=== PATIENT | male | born 1945 | race Caucasian/White ===

== ENCOUNTER 2017-06-17 00:32 | Observation (INO) | payer OTHER, MEDICARE ==
[~2017-06-17] VITALS: Ht 189.2 cm; Wt 112.9 kg
--- NOTE | ~2017-06-17 | HP ---
PATIENT'S NAME: RACHELL BROOKE [facility] AGE: 71 Y [address] ROOM: [place] [address] LOCATION: GPCU ADMIT DATE: 06/17/2017 History & Physical DISCHARGE DATE: FAMILY PHYSICIAN: HECTOR MCKAY MD ATTENDING PHYSICIAN: Horacio CHOUDHARY DATE OF SERVICE: CHIEF COMPLAINT: Chest pain. HISTORY OF PRESENT ILLNESS: The patient is a 71-year-old gentleman with past medical history of diabetes mellitus type 2, hypertension, and CAD status post PCI, who presents here with chest discomfort. The patient reports that for the past 3-4 days, he has been experiencing substernal chest discomfort, which he reports that it is pressure like. He reports that his chest pressure is constant and has been progressively getting worse. He reports that before he came to the emergency department was 5/10, now currently is 3/10 after nitro drip. He also reports of dyspnea on exertion and wheezing. He denies any radiation, exacerbating, and alleviating factors. The patient reports that this chest pain is different from his prior W[place] chest pain. He reports that his initial chest pain for his [place] was burning-like sensation. The patient thinks that this symptom is secondary to his tobacco use and he came to the emergency department if that can be ruled out. The patient denies any fever, chills, productive cough, abdominal pain, dizziness, nausea, vomiting, change in vision, and diarrhea. MEDICAL HISTORY: 1. Paroxysmal AFib. 2. Diabetes mellitus type 2. 3. Hypertension. 4. CAD. 5. Tobacco use. PAST SURGICAL HISTORY: 1. Hernia repair. 2. Broken jaw repair. 3. Tonsillectomy. FAMILY HISTORY: Father has a history of CAD, and mother had a history of GI cancer. SOCIAL HISTORY: PATIENT'S NAME: [facility] AGE: 71 Y [address] ROOM: [place] [address] LOCATION: GPCU ADMIT DATE: 06/17/2017 History & Physical DISCHARGE DATE: FAMILY PHYSICIAN: HECTOR MCKAY MD ATTENDING PHYSICIAN: Horacio CHOUDHARY He has 57 years of gyra-vum-fkgf tobacco use and he is disabled . MEDICATIONS: Currently being reconciled. REVIEW OF SYSTEMS: All systems have been reviewed and are negative except for what is mentioned in HPI. PHYSICAL EXAMINATION: VITAL SIGNS: Afebrile, blood pressure 152/84, heart rate of 49, saturating 96% on 1 L, and respiratory rate of 14. GENERAL APPEARANCE: The patient is alert and awake, in no acute distress. HEAD: Normocephalic, atraumatic. EYES: Extraocular movements are intact. ORAL CAVITY: Moist oral cavity. NOSE: No nasal discharge. EARS: No ear discharge. CHEST: Clear to auscultation bilaterally. HEART: Bradycardic. No murmurs, rubs, or gallops. ABDOMEN: Soft, nontender, and nondistended. Bowel sounds are present. SKIN: Warm to touch. MUSCULOSKELETAL: Range of motion intact. No obvious joint effusion noted. 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 Motor and sensory grossly intact. LABORATORY DATA: Troponin x1 negative. White blood cells 8, hemoglobin of 14.5, platelets of 189. BUN of 11, creatinine of 1. Sodium of 133, potassium of 4.1, CO2 of 27. INR of 2.91. Chest x-ray shows no acute cardiopulmonary changes. EKG shows sinus bradycardia with first-degree AV block with ME of 225, heart rate of 53, some nonspecific T-wave change on V1 and V2. Incomplete right- bundle branch block with a left axis deviation. ASSESSMENT AND PLAN: 1. Chest pain. The patient is presenting with atypical chest pain. However, the patient has a history of coronary artery disease. Initial cardiac enzymes are negative. EKG unremarkable. Chest x-ray unremarkable. We will admit the patient and continue with the nitroglycerin drip as it has some improvement on chest pain. We will trend troponin. We will hold heparin drip as the patient is on Coumadin. We will trend the cardiac enzyme. To continue aspirin and Plavix. We will hold beta-lesly as the patient has bradycardia. Cardiology PATIENT'S NAME: RACHELL BROOKE [facility] AGE: 71 Y [address] ROOM: [address] [place], [place] [address] LOCATION: [facility] ADMIT DATE: 06/17/2017 History & Physical DISCHARGE DATE: FAMILY PHYSICIAN: HECTOR MCKAY MD ATTENDING PHYSICIAN: FUNMI,Dagmawe consult in the morning. 2. Possible chronic obstructive pulmonary disease. The patient has expiratory wheezing on examination. He reports that he has been wheezing for the past 3-4 days. I suspect the patient might have underlying chronic obstructive pulmonary disease. We will start DuoNeb as needed. 3. Hypertension, currently on nitroglycerin drip. To continue home medication. 4. Paroxysmal atrial fibrillation. INR of 2.91. We will hold Coumadin for now, as the patient might need coronary angiogram during his stay. We will acquire daily INR. 5. Diabetes mellitus type 2. The patient is currently on metformin. We will hold metformin. We will start the patient on SSI. 6. Tobacco use. Discussed about cessation. The patient is ready to quit and offered nicotine. The patient reports that he does not want to use nicotine. Greater than 50 minutes was spent on patient care. Greater than 50% was spent on direct patient care. Assessment and plan was discussed with the patient. The patient understands the plan. The patient's question was answered with satisfaction. Code status discussed on admission, code status full code. We will keep the patient n.p.o. for now for possible ischemic evaluation per Cardiology. MD ISREAL NEWMAN/elmira /[id number] D: [id number] T: [id number] HISTORY & PHYSICAL
--- NOTE | ~2017-06-17 | ECHO ---
Transthoracic Echocardiography Report (TTE) Demographics Patient Name RACHELL BROOKE Date of Study 06/17/2017 Patient Number [id number] Visit Number [id number] Date of 1945 Room Number G6302 Gender Male Number Age 71 year(s) Referring Wing Jauregui Studio Technician Ruth Peter [facility], Physician Matias HINTON RVT Carlene Leonard Physician Interpreting Efstratiou Sql Report Analyst Physician Juventino Salcedo MD Supervising Ordering Efstratiou MD/MLP Physician Juventino Salcedo MD Nurse Stress Manager Of Purchasing Conclusions Contractility Score Summary Normal Left Ventricular contractility was noted. Summary The estimated left ventricular ejection fraction is 60-65%. Diastolic assessment reveals Grade I diastolic dysfunction. Left mild concentric ventricular hypertrophy. Mildly dilated right ventricle. The left atrium is mildly to moderately dilated by LA volume index measurement. There is mild pulmonary hypertension. The pulmonary pressure (RVSP) is 41 mmHg. Mild tricuspid regurgitation by color Doppler. Mild pulmonic valve regurgitation by color Doppler. Procedure Type of Study TTE procedure:2D Echocardiogram, M-Mode, Doppler , Color Doppler. BRIDGETT procedure Procedure Date Date: 06/17/2017 Start: 03:07 PM Study Location: [employer] Technical Quality: Adequate visualization Indications:Chest pain. Appropriate Use Criteria: 9 Patient Status: Routine Rhythm: Within normal limits HR: 55 bpm BP: 162/78 mmHg M-Mode/2D Measurements LV Diastolic Dimension: 5.56 cm LV Systolic Dimension: 3.35 cm LV Septum Diastolic: 1.18 cm LV PW Diastolic: 1.39 cm AO Root Dimension: 2.3 cm Cardiac Output: 4.3 l/min LA Dimension: 4.1 cm LVOT: 2.2 cm LVOT VTI: 20.6 cm RV Base: 4.19 cm LV Stroke volume: 78.27 ml RV Length: 6.46 cm TAPSE: 2.97 cm TDI-S': 14 cm/s Doppler Measurements AV Peak Velocity: 1.51 m/s MV Peak E-Wave: 0.75 m/s AV Peak Gradient: 9.12 mmHg MV Peak A-Wave: 0.89 m/s AV Mean Gradient: 4 mmHg MV E/A Ratio: 0.84 LVOT Peak Velocity: 0.82 m/s MV P1/2t: 74 msec TR Gradient:38.94 mmHg PV Peak Velocity: 1.07 m/s Estimated RAP:3 mmHg PV Peak Gradient: 4.58 mmHg Estimated RVSP: 42 mmHg Estimated PASP: 41.94 mmHg E' Septal Velocity: 0.07 m/s A' Septal Velocity: 0.12 m/s E' Lateral Velocity: 0.12 m/s A' Lateral Velocity: 0.08 m/s MV E/E' Ratio: 6 Findings Left Ventricle The estimated left ventricular ejection fraction is 60-65%. Diastolic assessment reveals Grade I diastolic dysfunction. Left mild concentric ventricular hypertrophy. Right Ventricle Mildly dilated right ventricle. Normal right ventricular function. Left Atrium The left atrium is mildly to moderately dilated by LA volume index measurement. Right Atrium Normal right atrial size. Mitral Valve Mild mitral regurgitation by color Doppler. Aortic Valve The aortic valve is mildly sclerotic. Tricuspid Valve There is mild pulmonary hypertension. The pulmonary pressure (RVSP) is 41 mmHg. Mild tricuspid regurgitation by color Doppler. Pulmonic Valve Mild pulmonic valve regurgitation by color Doppler. Pericardial Effusion No evidence of pericardial effusion. Miscellaneous Poor acoustical window to visualise the IVC. Pleural Effusion No evidence of pleural effusion. Signature dtt: Farhat Dimas dtd: 06/17/17 1507 Physician Self Edit
--- NOTE | ~2017-06-17 | ER ---
PATIENT'S NAME: RACHELL BROOKE [facility] AGE: 71 Y [address] ROOM: [place] [address] LOCATION: ED ADMIT DATE: 06/17/2017 ER/Outpatient Report DISCHARGE DATE: FAMILY PHYSICIAN: Paula Hernandez MD ATTENDING PHYSICIAN: Weston Avilez Admission date and time documented on the medical record. I saw the patient at 0040 hours. CHIEF COMPLAINT: Anterior chest pressure pain accompanied with shortness of breath, lightheadedness, and dizziness. HISTORY OF PRESENT ILLNESS: The patient is a 71-year-old male, who has had a three/four-day history of chest tightness, chest discomfort pain anteriorly without radiation but accompanied with shortness of breath, lightheadedness, and dizziness. No nausea, vomiting, diarrhea, or diaphoresis. The patient has a history of heart problems including coronary artery disease, status post myocardial infarction, hypertension, and paroxysmal atrial fibrillation. He does have hypothyroidism and oiu-qswrefx-ftbhzgium diabetes mellitus. Still smokes about 3/4 of pack of cigarettes a day. Generalized headache. No eyes, ears, nose, throat, neck, or spine pain. No recent coughs, colds, flus, fever, chills, or sweats. No abdominal pain. No diarrhea. No urinary frequency, urgency, or dysuria. No joint or muscle swelling, redness, or pain. No skin eruptions or rash. Does have a history of diabetes and hypothyroidism. No other endocrine problems. No seizure history, CVA, or TIA. No psych issues. HOME MEDICATIONS: See attached medication list. ALLERGIES: PENICILLIN AND CODEINE. SOCIAL HISTORY: Smokes 3/4 of pack of cigarettes per day. Nondrinker. SIGNIFICANT PAST MEDICAL HISTORY: Atherosclerotic ischemic heart disease; coronary artery disease, status post myocardial infarction; hypertension; paroxysmal atrial fibrillation, on chronic anticoagulation; zdf-fygpwpo-ehpovbrta diabetes mellitus type 2, hypothyroidism; tobacco abuse, degenerative osteoarthritis; pneumonia; and gastroesophageal reflux. OPERATIONS: PATIENT'S NAME: RACHELL BROOKE [facility] AGE: 71 Y [address] ROOM: [place] [address] LOCATION: ED ADMIT DATE: 06/17/2017 ER/Outpatient Report DISCHARGE DATE: FAMILY PHYSICIAN: Paula Hernandez MD ATTENDING PHYSICIAN: Weston Avilez Cardiac catheterization with PTCA and stenting, tonsillectomy, herniorrhaphy, and colonoscopy with polypectomy. REVIEW OF SYSTEMS: All systems reviewed by me are negative with exception of those discussed in the history of present illness. PHYSICAL EXAMINATION: VITAL SIGNS: Blood pressure 183/83, pulse 55 and regular, and respirations 16. Romy Coma Scale was 15. HEAD: Normocephalic. No abrasion, contusion, laceration, or swelling of the scalp or face. EYES: Extraocular muscles intact. PERRL. Sclerae and conjunctivae clear, nonicteric. Ears, clear TMs bilaterally. NOSE: Clear. THROAT: Clear. Mucous membranes moist. Teeth, jaw intact. NECK: No nuchal rigidity. No thyromegaly or cervical adenopathy. No tenderness to palpation. SPINE: Nontender. No deformity. LUNGS: Clear. Good air flow. No rales, rhonchi, or wheezes. HEART: Regular. Pulses are palpable. No chest wall or ribcage pain to palpation. ABDOMEN: Mildly obese, soft, nondistended, and nontender. Good bowel tones. No organomegaly or abnormal mass palpable. No CVA tenderness. PELVIS: Stable and nontender. EXTREMITIES: No peripheral edema, cyanosis, or deformity. Moves all 4 extremities. NEURO: Cranial nerves intact. No lateralizing signs. The patient is awake and cooperative. Motor and sensory intact. SKIN: Clear. No skin eruptions or rash. VASCULAR: Intact. DIAGNOSTIC DATA: EKG showed sinus rhythm. No acute ST elevation, ischemic change, or arrhythmia. Might be some old septal changes. Chest x-ray showed no acute infiltrate or changes. We will review x-ray with the radiologist. LABORATORY DATA: CMS was normal except for a slight low sodium 133, low calcium of 8.4, magnesium 1.9, and CPK was 119. Point of care cardiac enzymes were normal. White count was 8000, 70 segs, 19 lymphs, 10 monos, 1 eos, and 1 baso. Hemoglobin is 14.5 with hematocrit of 41.8 and platelet count 189,000. PTT is 43, pro-time is 30.9 with an INR of 2.91. EMERGENCY DEPARTMENT COURSE: PATIENT'S NAME: RACHELL BROOKE [facility] AGE: 71 Y [address] ROOM: [place], [place] [address] LOCATION: [facility] ADMIT DATE: 06/17/2017 ER/Outpatient Report DISCHARGE DATE: FAMILY PHYSICIAN: Paula Hernandez MD ATTENDING PHYSICIAN: Weston Avilez I did give the patient 4 baby aspirin orally here in the emergency room, started the patient on IV normal saline, fluids at 100 mL an hour, started him on IV nitro drip with marked improvement in his blood pressure and also some improvement in his chest discomfort. Also, gave him morphine for pain. IMPRESSION: 1. Anterior chest pressure pain, unstable angina, until proven otherwise. The patient does have a history of atherosclerotic ischemic heart disease with coronary artery disease, status post myocardial infarction. He has had several stents placed with cardiac catheterization. He does have risk factors including hypertension, jcz-rdfwpsm-movlrqvvr diabetes mellitus, moderate obesity, and known previous coronary artery disease. 2. Paroxysmal atrial fibrillation, chronic, anticoagulated with Coumadin. 3. Hypothyroidism. PLAN: Discussed the patient with Dr. Concepcion, hospitalist. Dr. Concepcion is coming to the emergency room to see the patient, admit the patient to the hospital for further cardiac evaluation. The patient most likely will need cardiac stress test and possibly echocardiogram. Did discuss my findings with the patient. He understands. Accumulated critical time 30 minutes. WESTON AVILEZ MD SDS/modl /[id number] d: 06/17/17 0206 t: 06/17/17 1821, OUTPATIENT REPORT
--- NOTE | ~2017-06-17 | CON ---
PATIENT'S NAME: RACHELL BROOKE [facility] AGE: 71 Y [address] ROOM: [address] [address] LOCATION: GPCU ADMIT DATE: 06/17/2017 Consultation DISCHARGE DATE: 06/17/2017 FAMILY PHYSICIAN: Paula Hernandez MD ATTENDING PHYSICIAN: Horacio Concepcion DATE OF CONSULTATION: 06/17/2017 REFERRING PHYSICIAN: Farhat Parikh MD DIAGNOSES: Coronary artery disease and chest pain. HISTORY OF PRESENT ILLNESS: The patient is a 71-year-old man with coronary artery disease, previous bifurcation stent in the LAD diagonal area. This has been present since 2009 at least. His last catheterization was in 2011 and showed patent stents. He presented to the emergency room complaining of chest pain and pressure that started at rest. Apparently, he was not given sublingual nitroglycerin and he does not remember. He was placed on intravenous nitroglycerin and admitted to the floor, became pain-free. He did not have any acute electrocardiographic changes. Serial enzymes have been negative. The patient says that now he regrets that he continued to smoke, but he promises that he will stop this time for sure. Additionally, he has dyslipidemia and diabetes type 2 and obesity. In the past, he also had episode of paroxysmal atrial fibrillation and premature ventricular contractions and he is on acebutolol. MEDICATIONS: The remaining of his medications include; 1. Acetaminophen 4 times daily. 2. Atorvastatin 40 mg daily. 3. Vitamin D3, 4000 units daily. 4. Clonazepam 1 mg in the evening. 5. twice daily. 6. Docusate 100 mg daily. 7. Flonase 2 sprays daily. 8. Hyoscyamine 0.125 two tablets twice a day. 9. Levothyroxine 100 mcg daily. 10. Lisinopril 10 mg half a tablet daily. 11. Loratadine 10 mg daily. 12. Magnesium oxide 400 mg twice a day. 13. Metformin 500 mg twice a day. 14. Pantoprazole 40 mg daily. 15. Plavix 75 mg daily. 16. Potassium chloride 10 mEq daily. 17. Reglan 5 mg half a tablet 4 times a day. PATIENT'S NAME: RACHELL BROOKE [facility] AGE: 71 Y [address] ROOM: [address] [address] [facility] ADMIT DATE: 06/17/2017 Consultation DISCHARGE DATE: 06/17/2017 FAMILY PHYSICIAN: Paula Hernandez MD ATTENDING PHYSICIAN: Horacio Concepcion 18. Simethicone 80 mg 4 times daily. 19. Tirosint 112 mcg capsule daily. 20. Warfarin per INR. The patient is a and [facility]. His last stress test was in 2012, which showed no ischemia. Last cardioversion in March 2014. He had carotid duplex in 2015, showed no significant stenosis. PHYSICAL EXAMINATION: VITAL SIGNS: Height 6 feet and 2-1/2 inches, weighs 112.9 kg, blood pressure 136/100, pulse 54, and temperature 97.6. GENERAL: He is alert and oriented. HEAD: Normocephalic and atraumatic. NECK: Supple. No jugular venous distention. No carotid bruits. LUNGS: Very few rales in the bases. HEART: Regular first and second heart sounds. No gallop. No murmur. ABDOMEN: Soft. Nontender. LOWER EXTREMITIES: No peripheral edema. PLAN: Given the presentation, I will proceed with a nuclear stress test and an echocardiogram. Thank you for allowing me to participate in the care of this patient. PANAYOTISMISSAEL PARIKH MD PE/elmira /[id number] d: 06/17/17 2241 t: 06/27/17 1045, CONSULTATION REPORT
--- NOTE | ~2017-06-17 | ESTC ---
Cardiac Perfusion Imaging Demographics Patient Name MENDY Woo Gender Male Patient Number [id number] Race Visit Number [id number] Ethnicity Corporate ID Room Number G6302 Accession Number [id number] Height 75 inches Date of 1945 Weight 248 pounds Matias Quiroz MD Interpreting Gayla Neely Date of study 06/17/2017 Physician Supervising /ALONSOP Wing Jauregui NM Technologist Mando Salcedo MD Ordering Physician Stress cell phone repair technician Stress ECG Reading Wing Lion Physician Matias HINTON The procedure was explained in detail to the patient. Risks, complications and alternative treatments were reviewed. Written consent was obtained. Medications Reviewed with Patient prior to Procedure. Procedure Procedure Type: Nuclear Stress Test:Pharmacological, Cardiolite Stress Test Procedure Start time: 06/17/2017 00:00 Indications: Chest pain. Risk Factors The patient risk factors include:prior PCI;obesity, Current/Recent(w/in 1 year) tobacco use, treated hypercholesterolemia, treated hypertension, family history of premature CAD, orally-treated diabetes mellitus, dyslipidemia and prior ME . Conclusions Summary Perfusion Images: The overall quality of the study is fair, due to soft tissue attenuation. Left ventricular cavity is noted to be normal on the stress and rest studies. There is no evidence of abnormal lung activity. The right ventricle is not visualized and cannot be assessed. Stress SPECT images and Rest SPECT images demonstrate homogenous tracer distribution throughout the myocardium except for mild to moderate decrease uptake in the area involving the distal anterior wall with no significant reversibility with normal wall motion consistent with soft tissue attenuation. Gated SPECT imaging reveals normal myocardial thickening and wall motion. The left ventricular ejection fraction was calculated to be 64%. Impression ECG portion of stress test is clinically negative for ischemia by diagnostic criteria. Myocardial perfusion imaging is mildly abnormal. However, no significant reversible perfusion defects were seen to suggest ischemia. The distal anterior wall matched defect is consistent with soft tissue attenuation. Overall left ventricular systolic function was normal without regional wall motion abnormalities. Stress Protocols Resting ECG Normal sinus rhythm. Pre-stress physical exam: Patient assessed by Dr Dimas prior to testing. Stress Protocol:Pharmacologic Predicted HR: 150 bpm ECG Findings No ECG changes suggestive of ischemia. Arrhythmias No rhythm abnormality. Symptoms No symptoms with Lexiscan infusion. Stress Interpretation Appropriate hemodynamic response to Lexiscan. No significant ST-T wave changes with Lexiscan. ECG portion is negative for ischemia by diagnostic criteria. Imaging Results Summed scores - Summed stress score: 5 - Summed rest score: 6 - Summed difference score: -1 Stress ejection Ejection fraction:64 % EDV :154 ml ESV :56 ml Stroke volume :98 ml LV mass :152 gr Imaging Protocols Rest Stress Isotope:Tc99m Sestamibi IV Isotope: Tc99m Sestamibi IV Isotope dose:15.4 mCi Isotope dose:46.7 mCi Date:06/17/2017 10:03 Date:06/17/2017 12:37 Technique: SPECT Technique: Gated Supine SPECT Supine IV remains in place after procedure. Scan Time:45-60 minutes post Scan Time:45-60 minutes post injection injection Procedure Medications - Regadenoson (Lexiscan) 0.4 mg IV over 10-15 sec. I.V. 0.4 mg. Medical History Admission Data Admission date: 06/17/2017 Admission Time: 02:00 Hospital Status: Inpatient. Signatures dtt: Farhat Dimas dtd: 06/17/17 0000 Physician Self Edit
--- NOTE | ~2017-06-17 | DS ---
PATIENT'S NAME: RACHELL BROOKE [facility] AGE: 71 Y [address] ROOM: [id number] [place], [place] [address] LOCATION: GPCU ADMIT DATE: 06/17/2017 Discharge Summary DISCHARGE DATE: 06/17/2017 FAMILY PHYSICIAN: Paula Hernandez MD ATTENDING PHYSICIAN: Horacio Concepcion HISTORY OF PRESENT ILLNESS: This is a 71-year-old gentleman with past medical history of diabetes mellitus type 2; hypertension; coronary artery disease, status post stents; he is a chronic tobacco abuser, who has been admitted for chest pain/ACS rule out. Please refer to the H and P for his HPI. HOSPITAL COURSE: At the time of his hospitalization, he had a cardiac workup, which include troponin, EKG, telemetry, and Lexiscan, which trend out to be all negative. His D-dimer is slightly elevated at 1.5; however, he is on Coumadin for his paroxysmal AFib, and he is therapeutic at 2.9, so PE is ruled out. His chest x-ray does not show any significant finding of pneumonia. His procalcitonin is negative at 0.07. He does have atypical chest pain symptoms, mainly it is pleuritic in nature, and in view of his chronic smoking history, I believe that this is more likely viral/COPD exacerbation. His chest pain improved with DuoNeb. We have obtained a respiratory pathogen, and this is pending. We did a 6-minute walk, and the patient did not require any oxygen at rest and on exertion. In view of his hemodynamic stability, he will be discharged. I will discharge him on Advair, and he is to follow up with his PCP in 1 week. He is to follow up with Cardiology as scheduled. Of note, I have advised him to stop smoking, and the patient is in agreement with, see above. PHYSICAL EXAMINATION: VITAL SIGNS: At the time of discharge, vitals are stable. He is afebrile, blood pressure in the 120s to 130s over 80s. The patient's respiratory rate is 12 to 14. The patient's heart rate is in the 70s to 80s. GENERAL: The patient is alert, awake, oriented. He is in no acute distress. HEART: The patient's heart sounds are regular rate and rhythm. No rubs. No murmurs present. LUNGS: Clear. No crackles. No wheezing. They are very diminished at this time. ABDOMEN: Nontender, no guarding, no rigidity. Bowel sounds are normal. EXTREMITIES: No pedal edema bilaterally. NEUROLOGIC: He is grossly normal. PSYCHIATRIC: He is alert, awake, oriented x3. He is able to make his own medical decisions. DISCHARGE MEDICATIONS: Discharge medications will include his home dose of medications, and he will also be discharged on Advair. PATIENT'S NAME: RACHELL BROOKE [facility] AGE: 71 Y [address] ROOM: [place] [address] LOCATION: GPCU ADMIT DATE: 06/17/2017 Discharge Summary DISCHARGE DATE: 06/17/2017 FAMILY PHYSICIAN: Paula Hernandez MD ATTENDING PHYSICIAN: Horacio Concepcion MD TITO GOODEN/elmira /[id number] d: 06/18/17 0258 t: 08/05/17 0919, DISCHARGE SUMMARY
--- NOTE | ~2017-06-17 | ECHO ---
Transesophageal Echocardiography Report (BRIDGETT) Demographics Patient Name RACHELL BROOKE Date of Study 06/17/2017 Patient Number [id number] Visit Number [id number] Date of 1945 Room Number G6302 Gender Male Number Age 71 year(s) Referring Wing Jauregui Ict Business Analyst Ruth Peter [facility], Physician Matias HINTON RVT Carlene Leonard Physician Interpreting Efstratiou Chronometer Adjuster Physician Juventino Salcedo MD Supervising Ordering Efstrachinmayou MD/MLP Physician Juventino Salcedo MD Nurse Stress Estimating Manager Conclusions Contractility Score Summary Normal Left Ventricular contractility was noted. Summary The estimated left ventricular ejection fraction is 60-65%. Diastolic assessment reveals Grade I diastolic dysfunction. Left mild concentric ventricular hypertrophy. Mildly dilated right ventricle. The left atrium is mildly to moderately dilated by LA volume index measurement. There is mild pulmonary hypertension. The pulmonary pressure (RVSP) is 41 mmHg. Mild tricuspid regurgitation by color Doppler. Mild pulmonic valve regurgitation by color Doppler. Procedure Type of Study BRIDGETT procedure:2D Echocardiogram, M-Mode, Doppler , Color Doppler. Procedure Date Date: 06/17/2017 Start: 03:07 PM Study Location: Mobile Services Technical Quality: Adequate visualization Indications:Chest pain. Appropriate Use Criteria: 9 Patient Status: Routine Rhythm: Within normal limits HR: 55 bpm BP: 162/78 mmHg M-Mode/2D Measurements LV Diastolic Dimension: 5.56 cm LV Systolic Dimension: 3.35 cm LV Septum Diastolic: 1.18 cm LV PW Diastolic: 1.39 cm AO Root Dimension: 2.3 cm Cardiac Output: 4.3 l/min LA Dimension: 4.1 cm LVOT: 2.2 cm LVOT VTI: 20.6 cm RV Base: 4.19 cm LV Stroke volume: 78.27 ml RV Length: 6.46 cm TAPSE: 2.97 cm TDI-S': 14 cm/s Doppler Measurements AV Peak Velocity: 1.51 m/s MV Peak E-Wave: 0.75 m/s AV Peak Gradient: 9.12 mmHg MV Peak A-Wave: 0.89 m/s AV Mean Gradient: 4 mmHg MV E/A Ratio: 0.84 LVOT Peak Velocity: 0.82 m/s MV P1/2t: 74 msec TR Gradient:38.94 mmHg PV Peak Velocity: 1.07 m/s Estimated RAP:3 mmHg PV Peak Gradient: 4.58 mmHg Estimated RVSP: 42 mmHg Estimated PASP: 41.94 mmHg E' Septal Velocity: 0.07 m/s A' Septal Velocity: 0.12 m/s E' Lateral Velocity: 0.12 m/s A' Lateral Velocity: 0.08 m/s MV E/E' Ratio: 6 Findings Left Ventricle The estimated left ventricular ejection fraction is 60-65%. Diastolic assessment reveals Grade I diastolic dysfunction. Left mild concentric ventricular hypertrophy. Right Ventricle Mildly dilated right ventricle. Normal right ventricular function. Left Atrium The left atrium is mildly to moderately dilated by LA volume index measurement. Right Atrium Normal right atrial size. Mitral Valve Mild mitral regurgitation by color Doppler. Aortic Valve The aortic valve is mildly sclerotic. Tricuspid Valve There is mild pulmonary hypertension. The pulmonary pressure (RVSP) is 41 mmHg. Mild tricuspid regurgitation by color Doppler. Pulmonic Valve Mild pulmonic valve regurgitation by color Doppler. Pericardial Effusion No evidence of pericardial effusion. Miscellaneous Poor acoustical window to visualise the IVC. Pleural Effusion No evidence of pleural effusion. Signature dtt: Farhat Dimas dtd: 06/17/17 1507 Physician Self Edit
[2017-06-17 00:58] LABS: BASOPHIL # 0.1 K/uL (0.0-0.2); BASOPHIL % 0.6 %; EOSINOPHIL # 0.1 K/uL (0.0-0.5); EOSINOPHIL % 1.1 %; HEMATOCRIT 41.8 % (37.0-53.0); HEMOGLOBIN 14.5 g/dL (11.0-16.0); IMMATURE GRANULOCYTE % 0.4 %; LYMPHOCYTE # 1.5 K/uL (0.8-4.0); LYMPHOCYTE % 18.7 %; MCH 31.3 pg (27.0-34.0); MCHC 34.7 gm/dL (32.0-36.5); MCV 90.3 fl (83.0-98.0); MONOCYTE # 0.8 K/uL (0.0-1.0); MONOCYTE % 9.5 %; MPV 10.1 fl (9.4-12.4); NEUTROPHIL # (ANC) 5.6 K/uL (1.4-9.0); NEUTROPHIL % 69.7 %; NRBC % 0 /100WBC (0-0.00); PLATELET COUNT 189 K/uL (150-450); RBC 4.63 M/uL (3.50-5.50); RDW-CV 14.1 % (11.9-14.6)
[2017-06-17 01:10] LABS: INR - (THERAPEUTIC) 2.91 (0.92-1.07); PROTIME 30.9 SECONDS (9.8-11.4); PTT 43 SECONDS (25-32)
[2017-06-17 01:17] LABS: ALBUMIN 3.7 gm/dL (3.5-5.0); ALK PHOS 72 IU/L (33-138); ALT 21 IU/L (12-78); ANION GAP 11.1 (10.0-19.0); AST 21 IU/L (10-40); BLOOD UREA NITROGEN 11 mg/dL (6-24); CALCIUM 8.4 mg/dL (8.5-10.5); CHLORIDE 99 mMol/L (96-110); CO2 27 mMol/L (22-32); CPK 119 IU/L (35-332); MAGNESIUM 1.9 mg/dL (1.8-2.6); POTASSIUM 4.1 mMol/L (3.7-5.1); SODIUM 133 mMol/L (135-145); TOTAL BILIRUBIN 0.8 mg/dL (0.0-1.5); TOTAL PROTEIN 7.9 g/dL (6.0-8.4)
[2017-06-17 03:00] LABS: CPK 107 IU/L (35-332)
[2017-06-17] MEDS ORDERED: ACEBUTOLOL HCL200 MG PO (03:03)
[2017-06-17] MEDS ORDERED: ATORVASTATIN CA40 MG PO (03:04)
[2017-06-17] MEDS ORDERED: THERA-D2000 UNIT PO (03:06)
[2017-06-17] MEDS ORDERED: KLONOPIN1 MG PO (03:07)
[2017-06-17] MEDS ORDERED: PLAVIX75 MG PO (03:08)
[2017-06-17] MEDS ORDERED: COL-RITE100 MG PO (03:09)
[2017-06-17] MEDS ORDERED: HYOSCYAMINE0.125 MG PO (03:11)
[2017-06-17] MEDS ORDERED: LEVOTHROID (S100 MCG PO (03:12)
[2017-06-17] MEDS ORDERED: PRINIVIL OR ZES10 MG PO (03:13)
[2017-06-17] MEDS ORDERED: CLARITIN10 MG PO (03:13)
[2017-06-17] MEDS ORDERED: MAG-OX-400(241400 MG PO (03:14)
[2017-06-17] MEDS ORDERED: METOCLOPRAMIDE H5 MG PO (03:14)
[2017-06-17] MEDS ORDERED: PROTONIX40 MG PO (03:15)
[2017-06-17] MEDS ORDERED: K-TAB 10MEQ10 MEQ PO (03:16)
[2017-06-17] MEDS ORDERED: MYLICON OR GAS-80 MG PO (03:16)
[2017-06-17] MEDS ORDERED: COUMADIN3 MG PO (03:20)
--- NOTE | 2017-06-17 04:35 | NUR ---
PATIENT WENT TO ER WITH CHIEF COMPLAINT OF CHEST DISCOMFORT FOR A FEW DAYS BUT LAST NIGHT HE NOTICED AND INCREASE IN SOB ALSO. PATIENT A/OX3. VSS ON RA. UP STANDBY ASSIST. LUNGS CLEAR/DIMINISHED. BOWEL SOUNDS PRESENT LAST BM 06/16. NO SKIN ISSUES. IV TO RT HAND. ON NITRO GTT AT 5 TITRATE FOR CHEST PAIN HOLD IF SBP < 120. CARDIAC WORK UP (-). BRADYCARDIA HR 40-50'S. CARDIAC ENZYMES Q6HRX3 0900,1500,2100. CARDIOLOGY TO SEE IN AM, NEEDS TO BE NOTIFIED. NPO.
[2017-06-17] MEDS ORDERED: COUMADIN ** IA3 MG PO (08:48)
[2017-06-17 09:53] LABS: CPK 93 IU/L (35-332)
[2017-06-17] MEDS ORDERED: LEVOTHROID (S112 MCG PO (10:08)
--- NOTE | 2017-06-17 12:31 | NUR ---
Introduced self and role of care management to pt. Pt lives alone in [place] and friends and family in [place]. He is independent with cares and hoping to go home later today and denies needs or hhc.
[2017-06-17 15:56] LABS: CPK 105 IU/L (35-332)
[2017-06-17] MEDS ORDERED: ADVAIR 250-501 EACH INH (17:52)
--- NOTE | 2017-06-17 18:14 | NUR ---
Significant Event: A&O. VSS, AFEBRILE, SATS LOW 90'S ON ROOM AIR. STRESS TEST, ECHO, 6MM WALK DONE. STARTED ADVAIR. DENIES CHEST PAIN. PLANS TO QUIT SMOKING. OK TO D/C ONCE PAPER WORK DONE
== END 2017-06-17 19:00 | disposition disaster alternative care site (69) ==
LOC: GMED 00:32 → GPCU 02:00
PROVIDERS: Emergency Medicine; ADMIT Internal Medicine
DX: R07.89 Other chest pain (principal); I10 Essential (primary) hypertension; I48.0 Paroxysmal atrial fibrillation; E11.9 Type 2 diabetes mellitus without complications; I25.10 Atherosclerotic heart disease of native coronary artery without angina pectoris; E78.5 Hyperlipidemia, unspecified; F17.210 Nicotine dependence, cigarettes, uncomplicated; Z88.0 Allergy status to penicillin; Z88.6 Allergy status to analgesic agent; Z79.899 Other long term (current) drug therapy; Z79.01 Long term (current) use of anticoagulants; Z98.890 Other specified postprocedural states
CPT/HCPCS: A9500; G0378; J2270; J2785; J7030

== ENCOUNTER 2017-07-16 13:19 | Emergency (ER) | payer OTHER, MEDICARE ==
--- NOTE | ~2017-07-16 | ER ---
[facility] 71 [facility] [address] ROOM: [place] [address] LOCATION: ED ADMIT DATE: 07/16/2017 ER/Outpatient Report DISCHARGE DATE: 07/16/2017 FAMILY PHYSICIAN: Paula Hernandez MD ATTENDING PHYSICIAN: Eh Koroma Time of Arrival: 1319. Time of Evaluation: 1328. CHIEF COMPLAINT: Hoarse voice. HISTORY OF PRESENT ILLNESS: The patient is a 71-year-old male, who presents to the emergency department today with chief complaint of losing his words. The patient reports it has been over a month now and he feels like he is losing his voice. He was started on Symbicort. He does feel like his upper throat is congested. This has been going on ever since he was released from the hospital. He has not followed up with his primary care doctor yet. The patient also has some issues of swallowing. He does report he had EGD done a few months ago, which he had some polyps removed. Denies any fevers or chills. No nausea or vomiting. No diarrhea or constipation. No chest pain. No shortness of breath. PAST MEDICAL HISTORY: Paroxysmal atrial fibrillation, diabetes mellitus type 2, hypertension, coronary artery disease, tobacco use. PAST SURGICAL HISTORY: Hernia repair, broken jaw repair, tonsillectomy. FAMILY HISTORY: Coronary artery disease, history of GI cancer. SOCIAL HISTORY: The patient has a 25-mdaq-dptt history. He is a disabled . Denies any alcohol or illicit drug use. ALLERGIES: ALLERGIES TO PENICILLIN AND CODEINE. MEDICATIONS: Please see list. PRIMARY CARE DOCTOR: PATIENT'S NAME: RACHELL BROOKE [facility] AGE: 71 Y [address] ROOM: [place], [place] [address] LOCATION: ED ADMIT DATE: 07/16/2017 ER/Outpatient Report DISCHARGE DATE: 07/16/2017 FAMILY PHYSICIAN: Paula Hernandez MD ATTENDING PHYSICIAN: Eh Koorma [facility]. REVIEW OF SYSTEMS: All systems are reviewed by myself and are negative with the exception of those discussed in HPI and past medical history. PHYSICAL EXAMINATION: VITAL SIGNS: Weight 115.7 kg. Blood pressure 180/89, pulse 60, respiratory rate 20, temperature 98.3, oxygen saturation 92% on room air. GENERAL: The patient is a 71-year-old male, who appears stated age in no acute distress at this time. HEENT: Head: Normocephalic, atraumatic. Pupils are equal, round, and reactive to light and accommodation. Extraocular motions are intact. Nares are patent bilaterally. TMs are clear. Oropharynx is clear. NECK: Supple. There is no nuchal rigidity. No masses are palpated. CARDIOVASCULAR: Regular rate and rhythm. No murmurs, rubs, or gallops. LUNGS: Clear to auscultation bilaterally. No wheezes, rales, or rhonchi. ABDOMEN: Soft, nontender, and nondistended. No rebound, rigidity, or guarding. MUSCULOSKELETAL: The patient moves all 4 extremities. SKIN: Warm and dry. No rashes or lesions noted. LABORATORY DATA AND X-RAYS: CBC is unremarkable. CMP is unremarkable. PTT 45, PT is 30.9, INR is 2.91. LFTs are normal. Cardiac enzymes are normal. CT scan of the neck, soft tissue is obtained. I have discussed results with the radiologist, it does show a large anterior osteophyte with anterior displacement, does appear old. There is no other significant masses or acute process noted in the soft tissue neck. IMPRESSION: 1. Hoarseness. 2. Initial visit. EMERGENCY DEPARTMENT COURSE: The patient is brought back to the examination room. Seen and evaluated by myself. IV is established. Laboratory analysis and imaging are obtained as described above. I have discussed results with the patient. I have recommended close followup with the patient's primary care doctor and his question as whether to continue the Symbicort. I have discussed with him with this for since that he needs a followup with Ear, Nose, and Throat doctor. I have discussed following up with [facility] in [place], however, he [facility] I have recommended he calls [place] to set this up. PATIENT'S NAME: RACHELL BROOKE [facility] AGE: 71 Y [address] ROOM: [place], [place] [address] LOCATION: ED ADMIT DATE: 07/16/2017 ER/Outpatient Report DISCHARGE DATE: 07/16/2017 FAMILY PHYSICIAN: Paula Hernandez MD ATTENDING PHYSICIAN: hE Koroma I have discussed return to care instructions, including any worsening symtptoms or any other concerns to return to the emergency department as soon as possible. DISPOSITION: The patient is discharged home in good condition. DO URIAH ROBERTSON/elmira /[id number] d: 07/16/179 t: 07/17/17 0843, OUTPATIENT REPORT
[~2017-07-16 13:19] MED LIST: ACEBUTOLOL HCL200 MG PO; ADVAIR 250-501 EACH INH; ATORVASTATIN CA40 MG PO; CLARITIN10 MG PO; COL-RITE100 MG PO; COUMADIN ** IA3 MG PO; COUMADIN3 MG PO; HYOSCYAMINE0.125 MG PO; K-TAB 10MEQ10 MEQ PO; KLONOPIN1 MG PO; LEVOTHROID (S100 MCG PO; LEVOTHROID (S112 MCG PO; MAG-OX-400(241400 MG PO; METOCLOPRAMIDE H5 MG PO; MYLICON OR GAS-80 MG PO; PLAVIX75 MG PO; PRINIVIL OR ZES10 MG PO; PROTONIX40 MG PO; THERA-D2000 UNIT PO
[2017-07-16 13:46] LABS: BASOPHIL # 0.1 K/uL (0.0-0.2); BASOPHIL % 0.8 %; EOSINOPHIL # 0.1 K/uL (0.0-0.5); EOSINOPHIL % 1.3 %; HEMATOCRIT 40.2 % (37.0-53.0); IMMATURE GRANULOCYTE # 0.1 K/uL (0.0-0.3); IMMATURE GRANULOCYTE % 0.7 %; LYMPHOCYTE # 1.1 K/uL (0.8-4.0); LYMPHOCYTE % 14.7 %; MCH 31.4 pg (27.0-34.0); MCHC 34.8 gm/dL (32.0-36.5); MCV 90.1 fl (83.0-98.0); MONOCYTE # 0.6 K/uL (0.0-1.0); MONOCYTE % 8.1 %; MPV 9.8 fl (9.4-12.4); NEUTROPHIL # (ANC) 5.5 K/uL (1.4-9.0); NEUTROPHIL % 74.4 %; NRBC % 0 /100WBC (0-0.00); PLATELET COUNT 179 K/uL (150-450); RBC 4.46 M/uL (3.50-5.50); RDW-CV 14.1 % (11.9-14.6); WBC 7.4 K/uL (4.0-11.0)
[2017-07-16 13:56] LABS: INR - (THERAPEUTIC) 2.91 (0.92-1.07); PROTIME 30.9 SECONDS (9.8-11.4); PTT 45 SECONDS (25-32)
[2017-07-16 14:08] LABS: ALBUMIN 3.6 gm/dL (3.5-5.0); ALK PHOS 89 IU/L (33-138); ALT 27 IU/L (12-78); ANION GAP 14.3 (10.0-19.0); AST 24 IU/L (10-40); BLOOD UREA NITROGEN 11 mg/dL (6-24); CALCIUM 8.2 mg/dL (8.5-10.5); CHLORIDE 100 mMol/L (96-110); CO2 23 mMol/L (22-32); CPK 80 IU/L (35-332); CREATININE 0.9 mg/dL (0.6-1.3); POTASSIUM 4.3 mMol/L (3.7-5.1); SODIUM 133 mMol/L (135-145); TOTAL BILIRUBIN 0.7 mg/dL (0.0-1.5); TOTAL PROTEIN 7.7 g/dL (6.0-8.4)
== END 2017-07-16 14:57 | disposition disaster alternative care site (69) ==
LOC: GMED 13:19
PROVIDERS: Emergency Medicine
DX: R49.1 Aphonia (principal); I10 Essential (primary) hypertension; E11.9 Type 2 diabetes mellitus without complications; I48.91 Unspecified atrial fibrillation; J44.9 Chronic obstructive pulmonary disease, unspecified; I25.10 Atherosclerotic heart disease of native coronary artery without angina pectoris; Z87.891 Personal history of nicotine dependence; Z90.89 Acquired absence of other organs; Z98.890 Other specified postprocedural states; Z88.0 Allergy status to penicillin; Z88.5 Allergy status to narcotic agent; Z79.01 Long term (current) use of anticoagulants; Z79.899 Other long term (current) drug therapy
CPT/HCPCS: Q9967